=== PATIENT | male | born 1975 | race African-American/Black ===

== ENCOUNTER 2017-06-25 01:32 | Emergency (ER) | payer MEDICAID ==
[~2017-06-25] VITALS: Ht 185.4 cm; Wt 91.0 kg
[2017-06-25] MEDS ORDERED: ACETAMINOPHEN WITH CODEINE 300/30MG TABLET PO ONE (03:00)
[2017-06-25 04:14] VITALS: BP 129/78
== END 2017-06-25 04:57 | disposition home or self-care (01) ==
LOC: ER 01:32
DX: S62.302A Unspecified fracture of third metacarpal bone, right hand, initial encounter for closed fracture (principal); F12.10 Cannabis abuse, uncomplicated; Y08.89XA Assault by other specified means, initial encounter; Y93.89 Activity, other specified; Y92.89 Other specified places as the place of occurrence of the external cause; Y99.8 Other external cause status
CPT/HCPCS: 29125; 73130; 99284

== ENCOUNTER 2022-03-31 09:00 | Emergency (ER) | payer MEDICAID ==
[~2022-03-31] VITALS: Ht 185.4 cm; Wt 102.0 kg
[2022-03-31] MEDS ORDERED: MORPHINE SULFATE 4 MG/ML CPJ (NOT FOR IM USE) IV STA (10:04)
[2022-03-31 10:50] VITALS: BP 149/98
[2022-03-31] MEDS ORDERED: MORPHINE SULFATE 4 MG/ML CPJ (NOT FOR IM USE) IV SCH (10:50)
[2022-03-31 10:55] LABS: BASOPHILS % 0.5 % (0.0-2.0); EOSINOPHILS % 2.8 % (0.0-5.0); HEMATOCRIT. 39.1 % (42.0-52.0); HEMOGLOBIN. 13.2 g/dL (14.0-18.0); LYMPHOCYTES % 24.7 % (20.0-50.0); MEAN CORPUSCULAR HEMOGLOBIN 25.3 pg (28.0-32.0); MEAN CORPUSCULAR VOLUME 75.1 fL (80.0-94.0); MEAN PLATELET VOLUME 7.8 fl (7.4-10.4); MONOCYTES % 6.5 % (2.0-8.0); NEUTROPHILS % 65.5 % (40.0-76.0); PLATELET 975 x1000/uL (130-400); RED BLOOD CELL COUNT 5.21 mill/uL (4.7-6.1); RED CELL DISTRIBUTION WIDTH 16.6 % (11.6-14.6)
[2022-03-31 11:19] LABS: CHLORIDE 120 mEq/L (98-107)
[2022-03-31] MEDS ORDERED: POTASSIUM CHLORIDE 20MEQ/PACKET PO SCH (11:30)
[2022-03-31] MEDS ORDERED: SODIUM CHLORIDE 0.9% 1,000 ML IV SCH (11:30)
== END 2022-03-31 13:45 | disposition home or self-care (01) ==
LOC: ER 09:00
DX: R10.12 Left upper quadrant pain (principal); E87.6 Hypokalemia; K76.0 Fatty (change of) liver, not elsewhere classified; R94.5 Abnormal results of liver function studies; D50.9 Iron deficiency anemia, unspecified; J45.909 Unspecified asthma, uncomplicated; F12.10 Cannabis abuse, uncomplicated
CPT/HCPCS: 36415; 76705; 80053; 83690; 85025; 96374; 99285; J2270